=== PATIENT | male | born 1935 | race Caucasian/White ===

== ENCOUNTER 2023-11-10 19:31 | Inpatient (IN) | payer OTHER, MEDICAID ==
[~2023-11-10] VITALS: Ht 170.2 cm; Wt 68.0 kg
[2023-11-10] MEDS ORDERED: PIPERACILLIN/TAZO 3.375 GM in D5W 50 ML IV ONE (20:15)
[2023-11-10 20:23] VITALS: BP_SYST 112; PULSE 98; RESP 22; TEMP 98.3; O2SAT 95
[2023-11-10] MEDS ORDERED: dilTIAZem HCL IVP 5 MG/ML VIAL IVP ONE ×2 (20:30→22:00)
[2023-11-10] MEDS ORDERED: PIPERACILLIN/TAZOBACTAM 3.375 GM/VIAL (ZOSYN) IV ONE (20:57)
[2023-11-10] MEDS ORDERED: ACETAMINOPHEN 650 MG SUPP.RECT RC ONE (21:00)
[2023-11-10 21:12] LABS: EOSINOPHILS % (AUTO) 0.1 % (0.0-4.0); HEMATOCRIT 33.7 % (36-54); HEMOGLOBIN 10.4 g/dL (14.0-18.0); INR 1.1 (0.80-1.20); LYMPHOCYTES # (AUTO) 2.5 K/uL (1.0-5.5); LYMPHOCYTES % (AUTO) 16.5 % (20.5-51.5); MEAN CORPUSCULAR HEMOGLOBIN 29 pg (27-31); MEAN CORPUSCULAR HGB CONC 31 % (32-36); MEAN CORPUSCULAR VOLUME 95 fL (79.0-98.0); MONOCYTES # (AUTO) 0.8 K/uL (0.0-1.0); MONOCYTES % (AUTO) 5.3 % (1.7-9.3); NEUTROPHILS # (AUTO) 11.7 K/uL (1.8-7.7); NEUTROPHILS % (AUTO) 78.1 % (40.0-70.0); PLATELET COUNT (AUTO) 214 K/uL (130-430); PROTHROMBIN TIME 11.5 SECS (9.5-12.5); RED BLOOD CELL COUNT(AUTO) 3.56 MIL/uL (4.2-6.2); RED CELL DISTRIBUTION WIDTH 14.2 % (9.0-15.0)
[2023-11-10 21:13] LABS: ALANINE AMINOTRANSFERASE 23 U/L (12-78); ALBUMIN 1.6 g/dL (3.4-4.8); ANION GAP 13 (5-15); ASPARTATE AMINOTRANSFERASE 30 U/L (10-37); CALCIUM 7.4 mg/dL (8.4-11.0); CARBON DIOXIDE 19 mmol/L (23-29); CHLORIDE 109 mmol/L (98-107); CREATININE 1.11 mg/dL (0.55-1.30); GLUCOSE 143 mg/dL (74-106); POTASSIUM 4.2 mmol/L (3.5-5.1); SODIUM SERUM 141 mmol/L (136-145); TOTAL BILIRUBIN 0.4 mg/dL (0.0-1.0); TOTAL PROTEIN, SERUM 7.3 g/dL (6.4-8.3); UREA NITROGEN, BLOOD 20 mg/dL (8-21)
[2023-11-10 21:27] LABS: BILIRUBIN,DIRECT 0.2 mg/dL (0.0-0.3)
[2023-11-10 21:42] LABS: BILIRUBIN,URINE NEGATIVE (NEGATIVE); CLARITY/URINE CLOUDY (CLEAR); COLOR,URINE YELLOW (YELLOW); GLUCOSE,URINE NEGATIVE (NEGATIVE); KETONES,URINE NEGATIVE (NEGATIVE); LEUKOCYTE ESTERASE ,URINE NEGATIVE (NEGATIVE); NITRITE, URINE NEGATIVE (NEGATIVE); PH,URINE 5.5 (5.0-8.0); PROTEIN URINE 2+ (NEGATIVE); UROBILINOGEN,URINE 0.2 (0.2-1.0)
[2023-11-10 21:45] LABS: BLOOD, URINE TRACE (NEGATIVE)
[2023-11-10] MEDS ORDERED: NACL 0.9% 1,000 ML IV ONE (21:45)
[2023-11-10 22:08] LABS: BACTERIA,URINE MODERATE /HPF (None Seen); WBC,URINE 0-3 /HPF (0-3)
[2023-11-10] MEDS ORDERED: ACETAMINOPHEN 500 MG TABLET PO ONE (22:15)
[2023-11-10] MEDS ORDERED: HYDROcodone/ACETAMIN 10-325 MG TAB PO PRN (22:30)
[2023-11-10] MEDS ORDERED: ONDANSETRON HCL 4 MG/2 ML VIAL IVP PRN (22:30)
[2023-11-10] MEDS ORDERED: ACETAMINOPHEN 325 MG TABLET PO PRN (22:30)
[2023-11-10] MEDS ORDERED: HYDROcodone/ACETAMIN 5-325 MG TAB (NORCO/ VICODIN) PO PRN (22:30)
[2023-11-10] MEDS: IPRATROPIUM BROM 0.5 MG/2.5 ML VIAL.NEB (ATROVENT) INH SCH (23:00)
[2023-11-10] MEDS ORDERED: ONDANSETRON HCL 4 MG/2 ML VIAL ONE (23:05)
[2023-11-10] MEDS ORDERED: SUCCINYLCHOLINE CHLORIDE 20 MG/ML(QUELICIN) ONE (23:21)
[2023-11-10] MEDS ORDERED: ETOMIDATE 20 MG/ 10 ML VIAL (AMIDATE) ONE (23:21)
[2023-11-10 23:30] VITALS: BP_SYST 99; PULSE 153
[2023-11-11] VITALS (30 sets, daily range): BP systolic 59–132; PULSE 60–126; RESP 16–32; TEMP 97–98.7; O2SAT 94–100
[2023-11-11] MEDS ORDERED: NOREPINEPHRINE 4 MG/4 ML VIAL IV ONE ×5 (00:09→06:00)
[2023-11-11] MEDS: NOREPINEPHRINE BITARTRATE 4 MG in D5W 246 ML IV PRN ×2 (00:24→02:07)
[2023-11-11] MEDS: PROPOFOL DRIP 100 ML IV PRN ×2 (00:32→09:08)
[2023-11-11 01:29] LABS: BLOOD GAS BASE EXCESS -7.1 mmol/L (-3.0-3.0); BLOOD GAS HCO3 17.3 mmol/L (21.0-27.0); BLOOD GAS PCO2 32.2 mmHg (32.0-45.0); BLOOD GAS PH 7.348 (7.350-7.450); BLOOD GAS PO2 315.4 mmHg (75.0-100.0)
[2023-11-11 01:30] LABS: ABG O2 SAT% ESTIMATE 99.7 % (94.0-100.0)
[2023-11-11] MEDS ORDERED: VANCOMYCIN HCL 1 GM/NS PREMIX 250 ML IV ONE (01:30)
[2023-11-11] MEDS ORDERED: MEROPENEM 1 GM in NS 100 ML IV ONE (01:30)
[2023-11-11] MEDS ORDERED: VANCOMYCIN HCL 1000 MG/VIAL IV ONE (01:31)
[2023-11-11] MEDS: NOREPINEPHRINE BITARTRATE 8 MG in D5W 242 ML IV PRN ×4 (02:06→20:38)
[2023-11-11] MEDS ORDERED: ATOR40TA68 PO (02:37)
[2023-11-11] MEDS ORDERED: FAMO20TA8 PO (02:37)
[2023-11-11] MEDS ORDERED: OMEP40CA20 PO (02:37)
[2023-11-11] MEDS ORDERED: MIDO5TAB4 PO (02:37)
[2023-11-11] MEDS ORDERED: HYDR-4175 RC (02:37)
[2023-11-11] MEDS ORDERED: FERR324T11 (02:37)
[2023-11-11] MEDS ORDERED: MEROPENEM 500 MG VIAL IV ONE (03:24)
[2023-11-11] MEDS: IPRATROPIUM BROM 0.5 MG/2.5 ML VIAL.NEB (ATROVENT) INH SCH ×6 (03:45→23:10)
[2023-11-11 08:51] LABS: HEMATOCRIT 28.5 % (36-54); HEMOGLOBIN 8.8 g/dL (14.0-18.0); MEAN CORPUSCULAR HEMOGLOBIN 30 pg (27-31); MEAN CORPUSCULAR HGB CONC 31 % (32-36); MEAN CORPUSCULAR VOLUME 95 fL (79.0-98.0); PLATELET COUNT (AUTO) 147 K/uL (130-430); RED BLOOD CELL COUNT(AUTO) 2.99 MIL/uL (4.2-6.2); RED CELL DISTRIBUTION WIDTH 14.5 % (9.0-15.0); WHITE BLOOD COUNT (AUTO) 29.2 K/uL (4.8-10.8)
[2023-11-11 09:26] LABS: ALANINE AMINOTRANSFERASE 19 U/L (12-78); ALBUMIN 1.1 g/dL (3.4-4.8); ANION GAP 11 (5-15); ASPARTATE AMINOTRANSFERASE 34 U/L (10-37); CALCIUM 7.4 mg/dL (8.4-11.0); CARBON DIOXIDE 16 mmol/L (23-29); CHLORIDE 108 mmol/L (98-107); GLUCOSE 122 mg/dL (74-106); POTASSIUM 3.5 mmol/L (3.5-5.1); SODIUM SERUM 135 mmol/L (136-145); TOTAL BILIRUBIN 0.5 mg/dL (0.0-1.0); TOTAL PROTEIN, SERUM 5.5 g/dL (6.4-8.3); UREA NITROGEN, BLOOD 22 mg/dL (8-21)
[2023-11-11] MEDS ORDERED: HYDROcodone/ACETAMIN 5-325 MG TAB (NORCO/ VICODIN) PO PRN (10:30)
[2023-11-11] MEDS: LR 1,000 ML IV SCH ×2 (10:50→20:03)
[2023-11-11 10:53] LABS: BAND % (MANUAL) 52 % (0-6)
[2023-11-11 10:54] LABS: BASOPHILS % (MANUAL) 0 % (0-2); EOSINOPHILS % (MANUAL) 0 % (0-7); LYMPHOCYTES % (MANUAL) 5 % (20-46); METAMYELOCYTES % 3 % (0-0); MONOCYTES % (MANUAL) 7 % (0-11); PLATELET ESTIMATE ADEQUATE (ADEQUATE)
[2023-11-11] MEDS ORDERED: CEFEPIME 2 GM in D5W 100 ML IV ONE (11:00)
[2023-11-11] MEDS ORDERED: ASPIRIN 81 MG TAB.CHEW PO ONE (11:15)
[2023-11-11] MEDS ORDERED: DIGOXIN 0.5 MG/2 ML AMP IVP ONE ×3 (11:15→23:00)
[2023-11-11] MEDS ORDERED: AMIODARONE HCL 150 MG in D5W 100 ML IV ONE (12:00)
[2023-11-11] MEDS ORDERED: AMIODARONE HCL 150 MG/3ML VIAL ONE (13:02)
[2023-11-11] MEDS: HYDROCORTISONE SOD SUCC 100 MG/2 ML VIAL IVP SCH ×2 (13:06→21:05)
[2023-11-11] MEDS: AMIODARONE HCL 450 MG in D5W 241 ML IV SCH ×2 (13:11→20:37)
[2023-11-11] MEDS: VANCOMYCIN HCL ORAL SOLUTION 250 MG/5 ML, 80 ML GT SCH ×3 (14:19→20:39)
[2023-11-11] MEDS ORDERED: NOREPINEPHRINE BITARTRATE 16 MG in NS 234 ML IV SCH (18:45)
[2023-11-11] MEDS: HEPARIN SODIUM,PORCINE 5,000 UNITS/ML VIAL SUBCUT SCH (20:41)
[2023-11-11] MEDS ORDERED: CEFEPIME 2 GM in D5W 100 ML IV SCH (21:00)
[2023-11-11] MEDS: MEROPENEM 500 MG in NS 50 ML IV SCH (21:04)
[2023-11-12] VITALS (39 sets, daily range): BP systolic 77–142; PULSE 66–78; RESP 14–31; TEMP 97.2–98; O2SAT 94–99
[2023-11-12] MEDS: IPRATROPIUM BROM 0.5 MG/2.5 ML VIAL.NEB (ATROVENT) INH SCH ×6 (03:10→23:29)
[2023-11-12] MEDS: LR 1,000 ML IV SCH ×2 (05:47→16:42)
[2023-11-12] MEDS: HYDROCORTISONE SOD SUCC 100 MG/2 ML VIAL IVP SCH (05:48)
[2023-11-12 06:03] LABS: BASOPHILS # (AUTO) 0.2 K/uL (0.0-0.2); BASOPHILS % (AUTO) 0.5 % (0.0-2.0); HEMATOCRIT 28.7 % (36-54); HEMOGLOBIN 8.9 g/dL (14.0-18.0); LYMPHOCYTES # (AUTO) 0.8 K/uL (1.0-5.5); LYMPHOCYTES % (AUTO) 1.9 % (20.5-51.5); MEAN CORPUSCULAR HEMOGLOBIN 29 pg (27-31); MEAN CORPUSCULAR HGB CONC 31 % (32-36); MEAN CORPUSCULAR VOLUME 94 fL (79.0-98.0); MONOCYTES # (AUTO) 1.9 K/uL (0.0-1.0); MONOCYTES % (AUTO) 4.5 % (1.7-9.3); PLATELET COUNT (AUTO) 143 K/uL (130-430); RED BLOOD CELL COUNT(AUTO) 3.07 MIL/uL (4.2-6.2); RED CELL DISTRIBUTION WIDTH 14.6 % (9.0-15.0)
[2023-11-12 06:16] LABS: ANION GAP 10 (5-15); CALCIUM 7.5 mg/dL (8.4-11.0); CARBON DIOXIDE 17 mmol/L (23-29); CHLORIDE 105 mmol/L (98-107); CREATININE 1.87 mg/dL (0.55-1.30); GLUCOSE 106 mg/dL (74-106); POTASSIUM 4.6 mmol/L (3.5-5.1); SODIUM SERUM 132 mmol/L (136-145); UREA NITROGEN, BLOOD 29 mg/dL (8-21)
[2023-11-12] MEDS: NOREPINEPHRINE BITARTRATE 16 MG in NS 234 ML IV PRN ×4 (07:00→14:52)
[2023-11-12 08:39] LABS: WHITE BLOOD COUNT (AUTO) 41.9 K/uL (4.8-10.8)
[2023-11-12 08:49] LABS: NEUTROPHILS % (AUTO) 93.1 % (40.0-70.0)
[2023-11-12] MEDS ORDERED: DIGOXIN 0.5 MG/2 ML AMP IVP SCH (09:00)
[2023-11-12] MEDS: VANCOMYCIN HCL ORAL SOLUTION 250 MG/5 ML, 80 ML GT SCH (09:32)
[2023-11-12] MEDS: FAMOTIDINE 20 MG TABLET PO SCH (09:33)
[2023-11-12] MEDS: HEPARIN SODIUM,PORCINE 5,000 UNITS/ML VIAL SUBCUT SCH ×2 (09:33→20:47)
[2023-11-12] MEDS: ASPIRIN 81 MG TAB.CHEW PO SCH (09:33)
[2023-11-12] MEDS: MEROPENEM 500 MG in NS 50 ML IV SCH ×2 (09:55→22:14)
[2023-11-12] MEDS: FLUCONAZOLE 200 mg/ NS 100 ML IV SCH (11:34)
[2023-11-12] MEDS: PROPOFOL DRIP 100 ML IV PRN (12:00)
[2023-11-12] MEDS: metroNIDAZOLE 500 mg/NS 100 ML IV SCH ×2 (14:51→22:13)
[2023-11-13] VITALS (35 sets, daily range): BP systolic 86–132; PULSE 55–101; RESP 17–28; TEMP 97–98.4; O2SAT 89–99
[2023-11-13] MEDS: PROPOFOL DRIP 100 ML IV PRN ×3 (00:11→22:54)
[2023-11-13] MEDS: NOREPINEPHRINE BITARTRATE 16 MG in NS 234 ML IV PRN ×2 (00:12→17:52)
[2023-11-13] MEDS: LR 1,000 ML IV SCH ×3 (03:18→22:00)
[2023-11-13] MEDS: IPRATROPIUM BROM 0.5 MG/2.5 ML VIAL.NEB (ATROVENT) INH SCH ×5 (04:04→23:20)
[2023-11-13 05:28] LABS: BASOPHILS % (AUTO) 0.1 % (0.0-2.0); HEMATOCRIT 26.9 % (36-54); HEMOGLOBIN 8.6 g/dL (14.0-18.0); LYMPHOCYTES # (AUTO) 0.7 K/uL (1.0-5.5); LYMPHOCYTES % (AUTO) 2.1 % (20.5-51.5); MEAN CORPUSCULAR HEMOGLOBIN 30 pg (27-31); MEAN CORPUSCULAR HGB CONC 32 % (32-36); MEAN CORPUSCULAR VOLUME 94 fL (79.0-98.0); MONOCYTES # (AUTO) 2.1 K/uL (0.0-1.0); MONOCYTES % (AUTO) 6.3 % (1.7-9.3); NEUTROPHILS # (AUTO) 29.9 K/uL (1.8-7.7); NEUTROPHILS % (AUTO) 91.5 % (40.0-70.0); PLATELET COUNT (AUTO) 127 K/uL (130-430); RED BLOOD CELL COUNT(AUTO) 2.88 MIL/uL (4.2-6.2); RED CELL DISTRIBUTION WIDTH 14.9 % (9.0-15.0)
[2023-11-13 05:43] LABS: ALANINE AMINOTRANSFERASE 24 U/L (12-78); ALBUMIN 0.9 g/dL (3.4-4.8); ANION GAP 12 (5-15); ASPARTATE AMINOTRANSFERASE 42 U/L (10-37); CALCIUM 7.8 mg/dL (8.4-11.0); CARBON DIOXIDE 17 mmol/L (23-29); CHLORIDE 110 mmol/L (98-107); CREATININE 1.95 mg/dL (0.55-1.30); GLUCOSE 88 mg/dL (74-106); POTASSIUM 4.7 mmol/L (3.5-5.1); SODIUM SERUM 139 mmol/L (136-145); TOTAL BILIRUBIN 0.7 mg/dL (0.0-1.0); TOTAL PROTEIN, SERUM 5.3 g/dL (6.4-8.3); UREA NITROGEN, BLOOD 38 mg/dL (8-21)
[2023-11-13] MEDS: metroNIDAZOLE 500 mg/NS 100 ML IV SCH ×3 (05:52→22:50)
[2023-11-13 06:29] LABS: WHITE BLOOD COUNT (AUTO) 32.7 K/uL (4.8-10.8)
[2023-11-13] MEDS: ASPIRIN 81 MG TAB.CHEW PO SCH (08:38)
[2023-11-13] MEDS: FAMOTIDINE 20 MG TABLET PO SCH (08:38)
[2023-11-13] MEDS: HEPARIN SODIUM,PORCINE 5,000 UNITS/ML VIAL SUBCUT SCH ×2 (08:39→21:29)
[2023-11-13] MEDS: MEROPENEM 500 MG in NS 50 ML IV SCH ×2 (09:12→21:35)
[2023-11-13] MEDS: FLUCONAZOLE 200 mg/ NS 100 ML IV SCH (12:02)
[2023-11-14] VITALS (32 sets, daily range): BP systolic 99–133; PULSE 58–109; RESP 16–34; TEMP 89.2–98.4; O2SAT 93–99
[2023-11-14] MEDS: IPRATROPIUM BROM 0.5 MG/2.5 ML VIAL.NEB (ATROVENT) INH SCH ×6 (02:56→23:30)
[2023-11-14 05:08] LABS: BASOPHILS # (AUTO) 0.1 K/uL (0.0-0.2); BASOPHILS % (AUTO) 0.3 % (0.0-2.0); EOSINOPHILS # (AUTO) 0.2 K/uL (0.0-0.4); HEMATOCRIT 27.2 % (36-54); HEMOGLOBIN 8.6 g/dL (14.0-18.0); LYMPHOCYTES # (AUTO) 1.1 K/uL (1.0-5.5); LYMPHOCYTES % (AUTO) 5.3 % (20.5-51.5); MEAN CORPUSCULAR HEMOGLOBIN 30 pg (27-31); MEAN CORPUSCULAR HGB CONC 32 % (32-36); MEAN CORPUSCULAR VOLUME 94 fL (79.0-98.0); MONOCYTES # (AUTO) 1.7 K/uL (0.0-1.0); MONOCYTES % (AUTO) 8.2 % (1.7-9.3); NEUTROPHILS # (AUTO) 17.9 K/uL (1.8-7.7); NEUTROPHILS % (AUTO) 85.2 % (40.0-70.0); PLATELET COUNT (AUTO) 129 K/uL (130-430); RED BLOOD CELL COUNT(AUTO) 2.91 MIL/uL (4.2-6.2); RED CELL DISTRIBUTION WIDTH 15.5 % (9.0-15.0)
[2023-11-14] MEDS: metroNIDAZOLE 500 mg/NS 100 ML IV SCH ×3 (05:48→21:16)
[2023-11-14] MEDS: NOREPINEPHRINE BITARTRATE 16 MG in NS 234 ML IV PRN ×2 (05:50→19:04)
[2023-11-14 06:19] LABS: ALANINE AMINOTRANSFERASE 19 U/L (12-78); ANION GAP 16 (5-15); ASPARTATE AMINOTRANSFERASE 29 U/L (10-37); CALCIUM 7.3 mg/dL (8.4-11.0); CARBON DIOXIDE 16 mmol/L (23-29); CHLORIDE 112 mmol/L (98-107); CREATININE 1.88 mg/dL (0.55-1.30); GLUCOSE 82 mg/dL (74-106); POTASSIUM 3.8 mmol/L (3.5-5.1); SODIUM SERUM 144 mmol/L (136-145); TOTAL BILIRUBIN 0.5 mg/dL (0.0-1.0); TOTAL PROTEIN, SERUM 5.3 g/dL (6.4-8.3); UREA NITROGEN, BLOOD 43 mg/dL (8-21)
[2023-11-14] MEDS: LR 1,000 ML IV SCH ×2 (08:03→19:05)
[2023-11-14] MEDS: FAMOTIDINE 20 MG TABLET PO SCH (08:54)
[2023-11-14] MEDS: ASPIRIN 81 MG TAB.CHEW PO SCH (08:54)
[2023-11-14] MEDS: HEPARIN SODIUM,PORCINE 5,000 UNITS/ML VIAL SUBCUT SCH ×2 (08:59→21:14)
[2023-11-14] MEDS: MEROPENEM 500 MG in NS 50 ML IV SCH ×2 (09:03→21:17)
[2023-11-14] MEDS: FLUCONAZOLE 200 mg/ NS 100 ML IV SCH (11:03)
[2023-11-14] MEDS: PROPOFOL DRIP 100 ML IV PRN ×2 (11:27→19:18)
[2023-11-15] VITALS (23 sets, daily range): BP systolic 59–113; PULSE 78–155; RESP 16–39; TEMP 98.2–100.1; O2SAT 86–97
[2023-11-15] MEDS ORDERED: PROPOFOL DRIP 100 ML IV ONE (02:01)
[2023-11-15] MEDS ORDERED: PHENYLEPHRINE HCL 100 MG in NS 240 ML IV PRN (03:00)
[2023-11-15] MEDS: IPRATROPIUM BROM 0.5 MG/2.5 ML VIAL.NEB (ATROVENT) INH SCH ×3 (03:05→12:48)
[2023-11-15] MEDS ORDERED: ALBUMIN HUMAN 25% 250 ML IV ONE (03:13)
[2023-11-15] MEDS: LR 1,000 ML IV SCH ×2 (04:00→09:59)
[2023-11-15] MEDS ORDERED: NOREPINEPHRINE 4 MG/4 ML VIAL IV ONE ×3 (04:49→10:44)
[2023-11-15] MEDS ORDERED: PHENYLEPHRINE HCL 10 MG/ML VIAL (NEOSYNEPHRINE) ONE (04:56)
[2023-11-15 05:02] LABS: BASOPHILS % (AUTO) 0.1 % (0.0-2.0); EOSINOPHILS # (AUTO) 0.2 K/uL (0.0-0.4); EOSINOPHILS % (AUTO) 1.3 % (0.0-4.0); HEMATOCRIT 25.2 % (36-54); LYMPHOCYTES # (AUTO) 3.3 K/uL (1.0-5.5); LYMPHOCYTES % (AUTO) 23.6 % (20.5-51.5); MEAN CORPUSCULAR HEMOGLOBIN 30 pg (27-31); MEAN CORPUSCULAR HGB CONC 32 % (32-36); MEAN CORPUSCULAR VOLUME 95 fL (79.0-98.0); MONOCYTES # (AUTO) 0.8 K/uL (0.0-1.0); NEUTROPHILS # (AUTO) 9.6 K/uL (1.8-7.7); PLATELET COUNT (AUTO) 93 K/uL (130-430); RED BLOOD CELL COUNT(AUTO) 2.66 MIL/uL (4.2-6.2); RED CELL DISTRIBUTION WIDTH 15.4 % (9.0-15.0); WHITE BLOOD COUNT (AUTO) 13.9 K/uL (4.8-10.8)
[2023-11-15 05:34] LABS: ALANINE AMINOTRANSFERASE 17 U/L (12-78); ALBUMIN 0.9 g/dL (3.4-4.8); ANION GAP 16 (5-15); ASPARTATE AMINOTRANSFERASE 39 U/L (10-37); CARBON DIOXIDE 14 mmol/L (23-29); CHLORIDE 116 mmol/L (98-107); CREATININE 2.61 mg/dL (0.55-1.30); GLUCOSE 120 mg/dL (74-106); POTASSIUM 4.9 mmol/L (3.5-5.1); SODIUM SERUM 146 mmol/L (136-145); TOTAL BILIRUBIN 0.5 mg/dL (0.0-1.0); TOTAL PROTEIN, SERUM 4.7 g/dL (6.4-8.3); UREA NITROGEN, BLOOD 52 mg/dL (8-21)
[2023-11-15] MEDS: metroNIDAZOLE 500 mg/NS 100 ML IV SCH (07:22)
[2023-11-15] MEDS: ASPIRIN 81 MG TAB.CHEW PO SCH (08:41)
[2023-11-15] MEDS: FAMOTIDINE 20 MG TABLET PO SCH (08:41)
[2023-11-15] MEDS: HEPARIN SODIUM,PORCINE 5,000 UNITS/ML VIAL SUBCUT SCH (08:41)
[2023-11-15] MEDS: MEROPENEM 500 MG in NS 50 ML IV SCH (10:00)
[2023-11-15] MEDS: NOREPINEPHRINE BITARTRATE 16 MG in NS 234 ML IV PRN (10:55)
[2023-11-15] MEDS: FLUCONAZOLE 200 mg/ NS 100 ML IV SCH (11:33)
[2023-11-15] MEDS ORDERED: NOREPINEPHRINE BITARTRATE 32 MG in NS 234 ML IV PRN (12:30)
[2023-11-15] MEDS ORDERED: VASOPRESSIN 40 UNITS in NS 38 ML IV PRN (13:15)
[2023-11-15] MEDS ORDERED: EPINEPHrine HCL 10 MG in NS 240 ML IV PRN (13:15)
== END 2023-11-15 17:35 | DRG 870 ==
LOC: SED 19:31 → SIC 22:18
PROVIDERS: ADMIT Family Medicine; ATTEND Family Medicine
PROC: 5A1955Z Respiratory Ventilation, Greater than 96 Consecutive Hours (ICD-10-PCS; principal; 2023-11-10)
PROC: 02HV33Z Insertion of Infusion Device into Superior Vena Cava, Percutaneous Approach (ICD-10-PCS; 2023-11-10)
PROC: 0BH17EZ Insertion of Endotracheal Airway into Trachea, Via Natural or Artificial Opening (ICD-10-PCS; 2023-11-10)
DX: A41.9 Sepsis, unspecified organism (principal); J96.01 Acute respiratory failure with hypoxia; J69.0 Pneumonitis due to inhalation of food and vomit; R65.21 Severe sepsis with septic shock; N17.9 Acute kidney failure, unspecified; K51.90 Ulcerative colitis, unspecified, without complications; G93.49 Other encephalopathy; A04.72 Enterocolitis due to Clostridium difficile, not specified as recurrent; D72.823 Leukemoid reaction; I12.9 Hypertensive chronic kidney disease with stage 1 through stage 4 chronic kidney disease, or unspecified chronic kidney disease; N18.32 Chronic kidney disease, stage 3b; E78.5 Hyperlipidemia, unspecified; I48.91 Unspecified atrial fibrillation; Z79.01 Long term (current) use of anticoagulants; Z79.899 Other long term (current) drug therapy
CPT/HCPCS: 36415; 36600; 71045; 80048; 80053; 80076; 81000; 81001; 81015; 82533; 82803; 83605; 83880; 84484; 85007; 85025; 85027; 85610-TC; 85730-TC; 87040; 87070-TC; 87081; 87086; 87205-TC; 87230-TC; 93005; 94002; 94003; 94640; 96365; 99291; J0171; J0282; J0330; J0692; J1160; J1450; J1644; J1720; J2185; J2370; J2405; J2543; J2704; J3370; J3490; J7050; J7060; P9046